=== PATIENT | male | born 1960 | race Caucasian/White ===

== ENCOUNTER 2019-04-01 16:39 | Emergency (ER) | payer BC ==
[2019-04-01 17:09] VITALS: BP 124/70; PULSE 50
--- NOTE | 2019-04-01 17:33 | EDM.PDOC ---
ED HPI GENERAL MEDICAL PROBLEM - General Chief Complaint: Genitourinary Problem Stated Complaint: RI SIDE TESTICLE PAIN Time Seen by Provider: 04/01/19 17:20 Source of Information: Reports: Patient History Limitations: Reports: No Limitations - History of Present Illness INITIAL COMMENTS - FREE TEXT/NARRATIVE: Akin is a 59 year old male who presents to the ED today with c/o right testicular pain/aching in nature for the last 2 days, denies any penile discharge or urinary symptoms. Patient has had epididymitis in the past, this would be his third presentation since January. Patient thinks they tested him for STD's which were negative. He is on Valacyclovir for genital herpes. Patient denies any urinary symptoms, fever, chills. Has been taking Indocin for pain with minimal relief in his symptoms. Onset: Gradual Duration: Day(s): (2) - Related Data Allergies Allergy/AdvReac Type Severity Reaction Status Date / Time No Known Allergies Allergy Verified 04/01/19 17:21 Home Meds: Home Meds Multivitamin with Minerals [Multiple Vitamin] 1 tab PO DAILY 06/30/18 [History] Omeprazole Magnesium [Prilosec] 10 mg PO DAILY 06/30/18 [History] Red Yeast Rice Extract 1 gm MC 06/30/18 [History] Indomethacin 04/01/19 [History] valACYclovir [Valtrex] 04/01/19 [History] Past Medical History HEENT History: Reports: Impaired Vision Genitourinary History: Reports: Renal Calculus Musculoskeletal History: Reports: Fracture, Other (See Below) Other Musculoskeletal History: broken jaw, broken collar bone. - Past Surgical History Musculoskeletal Surgical History: Reports: Arthroscopic Knee Social & Family History - Tobacco Use Smoking Status *Q: Never Smoker ED ROS GENERAL - Review of Systems Review Of Systems: ROS reveals no pertinent complaints other than HPI. ED EXAM, RENAL/ - Physical Exam Exam: See Below Exam Limited By: No Limitations General Appearance: Alert, WD/WN, No Apparent Distress Neck: Normal Inspection Respiratory/Chest: No Respiratory Distress Cardiovascular: Normal Peripheral Pulses, Bradycardia (Male) Exam: No Hernia, Circumcised, Cremasteric Reflex, Scrotal Swelling ( right, mild), Scrotum Tenderness (R). No: Inguinal Lymphadenopathy, Scrotum Tenderness (L), Urethral Discharge Rectal (Males) Exam: Deferred Extremities: Normal Inspection Neurological: Alert, Oriented, CN II-XII Intact Psychiatric: Normal Affect, Normal Mood Course - Vital Signs Last Recorded V/S: Last Vital Signs Temp 36.6 C 04/01/19 17:33 Pulse 50 L 04/01/19 17:33 Resp 18 04/01/19 17:33 BP 124/70 04/01/19 17:33 Pulse Ox 97 04/01/19 17:33 Akin is a 59 year old male, presents to the ED today with c/o right testicular pain. Please refer to HPI and focused exam. UA negative. US with hydrocele, no epididymitis, GC and Chlamydia pending. Patient reassured, referred to urology. Ibuprofen for pain, Percocet for severe pain, narcotic safety and side effects discussed. Reasons to return to the ED discussed with patient, he verbalizes understanding and was discharged in stable condition. - Orders/Labs/Meds Orders: Active Orders 24 hr Category Date Time Status CHLAMYDIA/GC AMPLIFICATION Stat Lab 04/01/19 16:30 Received Labs: Laboratory Tests 04/01/19 Range/Units 17:16 Urine Color Yellow (YELLOW) Urine Appearance Clear (CLEAR) Urine pH 6.5 (5.0-8.0) Ur Specific [place] 1.025 (1.008-1.030) Urine Protein Negative (NEGATIVE) mg/dL Urine Glucose (UA) Normal (NEGATIVE) mg/dL Urine Ketones Negative (NEGATIVE) mg/dL Urine Occult Blood Negative (NEGATIVE) Urine Nitrite Negative (NEGATIVE) Urine Bilirubin Negative (NEGATIVE) Urine Urobilinogen 1.0 (0.2-1.0) EU/dL Ur Leukocyte Esterase Negative (NEGATIVE) Urine RBC Not seen (0-5) Urine WBC Not seen (0-5) Ur Epithelial Cells Rare Amorphous Sediment Not seen Urine Bacteria Rare Urine Mucus Not seen Meds: Medications Discontinued Medications Generic Name Dose Route Start Last Admin Trade Name Freq PRN Reason Stop Dose Admin Oxycodone/Acetaminophen 2 tab 04/01/19 17:45 04/01/19 18:23 Percocet 325-5 Mg PO 04/01/19 17:46 2 tab ONETIME ONE Administration Departure - Departure Time of Disposition: 19:00 Disposition: Home, Self-Care 01 Condition: Good Clinical Impression: Hydrocele in adult - Discharge Information Instructions: Hydrocele, Adult Referrals: Mc Cabrera MD [Primary Care Provider] - Forms: ED Department Discharge Additional Instructions: Ibuprofen 600 mg every 6 hour as needed for pain. Percocet as needed for severe pain. Follow up with Urology. [facility] [address] [place] [id number] Raghu Ansari, [facility] Urologist [phone] Dr. Stephon Galvin, DO * Urologic Surgery * Urology * [facility] * [address] [address] - My Orders Last 24 Hours: My Active Orders 04/01/19 16:30 CHLAMYDIA/GC AMPLIFICATION Stat - Assessment/Plan Last 24 Hours: My Active Orders 04/01/19 16:30 CHLAMYDIA/GC AMPLIFICATION Stat
[2019-04-01] MEDS ORDERED: Acetaminophen/oxyCODONE 325-5 MG Tab PO ONE (17:45)
--- NOTE | 2019-04-01 18:43 | CRLUS ---
INDICATION: Right testicular pain TECHNIQUE: Ultrasound of the scrotum and contents. Sonographic jacinto scale images were obtained with spectral and color Doppler waveform and spectral waveform analysis of the testicles. COMPARISON: 11/10/2018 FINDINGS: Right testicle: 4.8 centimeter x 2.6 centimeter x 3.4 centimeter. Normal echotexture. No masses. No suspicious calcifications. Normal arterial and venous and blood flow using Doppler and spectral waveform analysis. Left testicle: 4.9 centimeter x 2.6 centimeter x 2.7 centimeter normal echotexture. No masses. No suspicious calcifications. Normal arterial and venous and blood flow using Doppler and spectral waveform analysis. Epididymis: Unremarkable bilaterally. Normal blood flow. Other: Septated right hydrocele. No sign of varicocele. Scrotal wall is normal. IMPRESSION: Septated right hydrocele. This was present on 11/10/2018. Sonographically normal testicles, right and left epididymis. Dictated by Raghu Briones MD @ 04/01/2019 6:42:21 PM Dictated by: Raghu Briones MD @ 04/01/2019 18:42:27 (Electronically Signed)
[2019-04-04 11:09] LABS: CHLAMYDIA TRACHOMATIS, NAA Negative (Negative); NEISSERIA GONORRHOEAE, NAA Negative (Negative)
== END 2019-04-01 19:02 | disposition home or self-care (01) ==
LOC: JP.ED 16:39
DX: N43.3 Hydrocele, unspecified (principal)
CPT/HCPCS: 81001; 87491; 87591; 93975; 99284; A9270

== ENCOUNTER 2019-07-27 06:28 | Emergency (ER) | payer BC ==
[2019-07-27 06:43] VITALS: BP 118/78; PULSE 66
[2019-07-27] MEDS ORDERED: Ketorolac 30 MG/ML SDV IM ONE (07:01)
[2019-07-27] MEDS ORDERED: Ondansetron 4 MG Tab.DIS PO ONE (07:05)
[2019-07-27] MEDS ORDERED: Acetaminophen/oxyCODONE 325-5 MG Tab PO STA ×2 (07:05→08:02)
--- NOTE | 2019-07-27 07:11 | EDM.PDOC ---
ED HPI GENERAL MEDICAL PROBLEM - General Chief Complaint: Abdominal Pain Stated Complaint: SEVERE ABD PAIN Time Seen by Provider: 07/27/19 07:00 Source of Information: Reports: Patient, Old Records, RN History Limitations: Reports: No Limitations - History of Present Illness INITIAL COMMENTS - FREE TEXT/NARRATIVE: 59 yo male here with RLQ abdominal pain that radiates to the R testicle. He has a remote hx of kidney stone. Has intermittent mild nausea only. Took Naproxen 500 mg at 0200h last night. No fever. No diarrhea or constipation. Drove himself to the ER this morning. Onset: Today Onset Date: 07/27/19 Onset Time: 01:00 Duration: Hour(s):, Waxing/Waning Location: Reports: Abdomen (RLQ) Quality: Reports: Pressure, Stabbing Severity: Severe Improves with: Reports: None Worsens with: Reports: None Context: Reports: Other (see HPI) Associated Symptoms: Reports: Nausea/Vomiting (no vomiting, mild nausea.). 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) (naproxen) right lower abd Pain Score (Numeric/FACES): 9 - Related Data Allergies Allergy/AdvReac Type Severity Reaction Status Date / Time No Known Allergies Allergy Verified 07/27/19 06:42 Home Meds: Home Meds Multivitamin with Minerals [Multiple Vitamin] 1 tab PO DAILY 06/30/18 [History] Red Yeast Rice Extract 1 gm MC DAILY 06/30/18 [History] valACYclovir [Valtrex] 1 tab PO DAILY 04/01/19 [History] Acetaminophen/oxyCODONE [Percocet 325-5 MG] 1 - 2 tab PO QID PRN #8 tab [Rx] Naproxen [Naprosyn] 500 mg PO BID 07/27/19 [History] Past Medical History HEENT History: Reports: Impaired Vision Genitourinary History: Reports: Renal Calculus Musculoskeletal History: Reports: Fracture, Other (See Below) Other Musculoskeletal History: broken jaw, broken collar bone. - Infectious Disease History Infectious Disease History: Reports: Chicken Pox, Shingles - Past Surgical History Musculoskeletal Surgical History: Reports: Arthroscopic Knee Social & Family History - Tobacco Use Smoking Status *Q: Never Smoker - Caffeine Use Caffeine Use: Reports: Coffee - Recreational Drug Use Recreational Drug Use: No ED ROS GENERAL - Review of Systems Review Of Systems: See Below Constitutional: Reports: No Symptoms HEENT: Reports: No Symptoms Respiratory: Reports: No Symptoms Cardiovascular: Reports: No Symptoms GI/Abdominal: Reports: Abdominal Pain, Nausea. Denies: Black Stool, Bloody Stool, Constipation, Diarrhea, Decreased Appetite, Distension, Flatus, Hematemesis, Hematochezia, Melena, Vomiting : Reports: Urgency (feels like he needs to go, but he cannot). Denies: Dysuria, Flank Pain, Hematuria Musculoskeletal: Reports: No Symptoms Skin: Reports: No Symptoms Neurological: Reports: No Symptoms ED EXAM, RENAL/ - Physical Exam Exam: See Below Exam Limited By: No Limitations General Appearance: Alert, WD/WN, Mild Distress Eye Exam: Bilateral Eye: Normal Inspection Ears: Normal External Exam, Normal Canal, Hearing Grossly Normal, Normal TMs Nose: Normal Inspection, No Blood Throat/Mouth: Normal Inspection, Normal Lips, Normal Oropharynx, Normal Voice, No Airway Compromise Head: Atraumatic, Normocephalic Neck: Normal Inspection Respiratory/Chest: No Respiratory Distress, Lungs Clear, Normal Breath Sounds, No Accessory Muscle Use Cardiovascular: Regular Rate, Rhythm, No Edema GI/Abdominal: Normal Bowel Sounds, Soft, Non-Tender, No Distention. No: Distended, Guarding, Rigid, Rebound, Tender, Hernia (Male) Exam: Normal Inspection Back Exam: No: CVA Tenderness (R), CVA Tenderness (L) Extremities: Normal Inspection, Normal Range of Motion, Non-Tender, No Pedal Edema Neurological: Alert, Oriented, CN II-XII Intact, Normal Cognition, No Motor/ Sensory Deficits Psychiatric: Normal Affect, Normal Mood Skin Exam: Warm, Dry, Intact, Normal Color, No Rash Course - Vital Signs Text/Narrative:: Pain completely gone, wants to go home. 0920h Last Recorded V/S: Last Vital Signs Temp 35.4 C 07/27/19 06:43 Pulse 66 07/27/19 06:43 Resp 17 07/27/19 06:43 BP 118/78 07/27/19 06:43 Pulse Ox 96 07/27/19 06:43 - Orders/Labs/Meds Labs: Laboratory Tests 07/27/19 Range/Units 06:52 Urine Color Yellow (YELLOW) Urine Appearance Slightly cloudy A (CLEAR) Urine pH 5.5 (5.0-8.0) Ur Specific [place] >= 1.030 (1.008-1.030) Urine Protein 30 H (NEGATIVE) mg/dL Urine Glucose (UA) Negative (NEGATIVE) mg/dL Urine Ketones Trace H (NEGATIVE) mg/dL Urine Occult Blood Large H (NEGATIVE) Urine Nitrite Negative (NEGATIVE) Urine Bilirubin Small H (NEGATIVE) Urine Urobilinogen 1.0 (0.2-1.0) EU/dL Ur Leukocyte Esterase Negative (NEGATIVE) Urine RBC >100 H (0-5) Urine WBC 5-10 H (0-5) Ur Epithelial Cells Few Amorphous Sediment Not seen Urine Bacteria Few Urine Mucus Few Meds: Medications Discontinued Medications Generic Name Dose Route Start Last Admin Trade Name Freq PRN Reason Stop Dose Admin Lactated Ringer's 1,000 mls @ 1,000 mls/hr 07/27/19 07:12 07/27/19 07:26 Ringers, Lactated IV 07/27/19 08:11 1,000 mls/hr BOLUS ONE Administration Ketorolac Tromethamine 30 mg 07/27/19 07:01 07/27/19 07:08 Toradol IM 07/27/19 07:02 30 mg ONETIME ONE Administration Ondansetron HCl 4 mg 07/27/19 07:05 Zofran Odt PO 07/27/19 07:06 ONETIME ONE Oxycodone/Acetaminophen 1 tab 07/27/19 07:05 07/27/19 07:10 Percocet 325-5 Mg PO 07/27/19 07:06 1 tab ONETIME STA Administration Oxycodone/Acetaminophen 1 tab 07/27/19 08:02 07/27/19 08:06 Percocet 325-5 Mg PO 07/27/19 08:03 1 tab ONETIME STA Administration Departure - Departure Time of Disposition: 09:23 Disposition: Home, Self-Care 01 Condition: Good Clinical Impression: Ureterolithiasis - Discharge Information *PRESCRIPTION DRUG MONITORING PROGRAM REVIEWED*: No *COPY OF PRESCRIPTION DRUG MONITORING REPORT IN PATIENT GRACIE: No Prescriptions: Acetaminophen/oxyCODONE [Percocet 325-5 MG] 1 - 2 tab PO QID PRN #8 tab PRN Reason: Pain Instructions: Kidney Stones, [id number] Referrals: Mc Cabrera MD [Primary Care Provider] - Forms: ED Department Discharge Additional Instructions: Continue Aleve 2 every 8-12 hrs with food as needed for pain relief. Add Percocet for additional pain relief. Drink ample fluids so your urine is always light yellow in color. Strain urine and save any sediment for further testing by your provider. Return as needed. Sepsis Event Note - Evaluation Sepsis Screening Result: No Definite Risk - Focused Exam Vital Signs: Vital Signs Temp Pulse Resp BP Pulse Ox 07/27/19 06:43 35.4 C 66 17 118/78 96 07/27/19 06:42 35.4 C 66 17 118/78 96 Date Exam was Performed: 07/27/19 Time Exam was Performed: 09:23
[2019-07-27] MEDS ORDERED: Lactated Ringers 1,000 ML IV ONE (07:12)
== END 2019-07-27 09:30 | disposition home or self-care (01) ==
LOC: JP.ED 06:28
DX: N20.1 Calculus of ureter (principal)
CPT/HCPCS: 99284; 96360; 96372; 81001; J1885; A9270 ×2; J7120

== ENCOUNTER 2020-07-19 21:38 | Emergency (ER) | payer BC ==
--- NOTE | 2020-07-19 21:59 | EDM.PDOC ---
ED HPI GENERAL MEDICAL PROBLEM - General Chief Complaint: Respiratory Problem Stated Complaint: TROUBLE BREATHING - Related Data Allergies Allergy/AdvReac Type Severity Reaction Status Date / Time No Known Allergies Allergy Verified 07/27/19 06:42 Home Meds: Home Meds Multivitamin with Minerals [Multiple Vitamin] 1 tab PO DAILY 06/30/18 [History] Red Yeast Rice Extract 1 gm MC DAILY 06/30/18 [History] valACYclovir [Valtrex] 1 tab PO DAILY 04/01/19 [History] Acetaminophen/oxyCODONE [Percocet 325-5 MG] 1 - 2 tab PO QID PRN #8 tab 07/27/19 [Rx] Naproxen [Naprosyn] 500 mg PO BID 07/27/19 [History] Past Medical History HEENT History: Reports: Impaired Vision Genitourinary History: Reports: Renal Calculus Musculoskeletal History: Reports: Fracture, Other (See Below) Other Musculoskeletal History: broken jaw, broken collar bone. - Infectious Disease History Infectious Disease History: Reports: Chicken Pox, Shingles - Past Surgical History Musculoskeletal Surgical History: Reports: Arthroscopic Knee Social & Family History - Caffeine Use Caffeine Use: Reports: Coffee Departure - Discharge Information Referrals: Mc Cabrera MD [Primary Care Provider] -
== END 2020-07-19 21:54 | disposition left against medical advice (07) ==
LOC: JP.ED 21:38
DX: Z53.21 Procedure and treatment not carried out due to patient leaving prior to being seen by health care provider (principal)

== ENCOUNTER 2021-10-26 11:39 | Emergency (ER) | payer BC, OTHER ==
[2021-10-26 11:51] VITALS: BP 142/67; PULSE 62
[2021-10-26] MEDS ORDERED: Ketorolac 30 MG/ML SDV IM ONE (11:57)
[2021-10-26] MEDS ORDERED: Acetaminophen/oxyCODONE 325-5 MG Tab PO PRN (12:39)
== END 2021-10-26 13:30 | disposition home or self-care (01) ==
LOC: JP.ED 11:39
DX: R10.9 Unspecified abdominal pain (principal)
CPT/HCPCS: 81001; 96372; 99282; 99284; A9270-GY; J1885

== ENCOUNTER 2021-10-28 08:13 | Emergency (ER) | payer BC, OTHER ==
[2021-10-28] MEDS ORDERED: HYDROmorphone 0.5 MG/0.5 ML Syringe IVPUSH ONE (08:36)
[2021-10-28] MEDS ORDERED: Ketorolac 30 MG/ML SDV IVPUSH ONE (08:36)
[2021-10-28 10:28] VITALS: BP 124/68; PULSE 61
[2021-10-28] MEDS ORDERED: Tamsulosin 0.4 MG Cap.ER PO ONE (10:53)
== END 2021-10-28 11:25 | disposition home or self-care (01) ==
LOC: JP.ED 08:13
DX: N13.2 Hydronephrosis with renal and ureteral calculous obstruction (principal); R11.2 Nausea with vomiting, unspecified
CPT/HCPCS: 36415; 74176; 74176-26; 80048; 81001; 85025; 96374; 96375; 99282; 99284-25; A9270-GY; J1170; J1885

== ENCOUNTER 2022-12-12 09:11 | Emergency (ER) | payer OTHER ==
[2022-12-12 09:53] VITALS: BP 127/74; PULSE 56
== END 2022-12-12 10:40 | disposition home or self-care (01) ==
LOC: JP.ED 09:11
DX: S30.863A Insect bite (nonvenomous) of scrotum and testes, initial encounter (principal); W57.XXXA Bitten or stung by nonvenomous insect and other nonvenomous arthropods, initial encounter
CPT/HCPCS: 99281

== ENCOUNTER 2024-05-26 23:54 | Emergency (ER) | payer OTHER ==
[2024-05-27 00:05] VITALS: BP 116/61; PULSE 64
== END 2024-05-27 01:13 | disposition home or self-care (01) ==
LOC: JP.ED 23:54
DX: H43.391 Other vitreous opacities, right eye (principal)
CPT/HCPCS: 99283